=== PATIENT | female | born 1940 | race Caucasian/White ===

== ENCOUNTER → 2023-12-22 13:00 | Outpatient (BNVA) | payer MEDICARE, SELFPAY | PROVIDERS: PCP Registered Nurse; Referring Provider Registered Nurse; Visit Provider Physician Assistant Surgical | DX: J98.4 Other disorders of lung (principal); M06.9 Rheumatoid arthritis, unspecified; D64.9 Anemia, unspecified | CPT/HCPCS: 99205 ==